=== PATIENT | male | born 1990 | race Caucasian/White ===

== ENCOUNTER 2020-03-06 12:52 | Emergency (ER) | payer SELFPAY ==
[2020-03-06 13:06] VITALS: BP 138/94; PULSE 95; RESP 18; TEMP 37.1; O2SAT 98; BMI 26.1
--- NOTE | 2020-03-06 13:11 | W.ED.WOUNDLC ---
HPI - Wound/Laceration General: Chief Complaint: Wound/Laceration Stated Complaint: FINGER LAC Time Seen by Provider: 03/06/20 12:58 Source: patient Mode of arrival: ambulatory Limitations: no limitations History of Present Illness: HPI narrative: Patient is a 29-year-old male who presents to ED today after he was sent from urgent care for trauma to his left fourth finger. Patient tells me he was at work when he accidentally chopped a portion of his finger off with a knife. He states this is not a workers comp claim Onset (ago): hour(s) Extremity Location: Left: hand Place: work Patient tetanus UTD: No Context: accidental Associated symptoms: Reports no associated symptoms Review of Systems Musc: Reports: extremity pain (L 4th finger injury) PFS ED PFSH: Social History Smoking and tobacco status: current every day smoker Physical Exam Const: COMMON NORMALS: no acute distress, average body habitus, patient oriented x3, no limitations, healthy appearing, alert and well nourished Extremity: GENERAL: Yes normal exam except as noted OTHER: pt has amputation of a small portion of the fatty tip of his L 4th finger; there is no nail trauma; no exposed bone Neuro: COMMON NORMALS: patient oriented x3 SENSORIUM/ORIENTATION: Yes alert Skin: OTHER: see extremity assessment Course Vital Signs: Vital signs: Vital Signs Temperature 98.7 F 03/06/20 13:06 Pulse Rate 95 03/06/20 13:06 Respiratory Rate 18 03/06/20 13:41 Blood Pressure 138/94 03/06/20 13:06 Pulse Oximetry 98 03/06/20 13:06 MDM - Wound/Laceration MDM Narrative: Medical decision making narrative: at this point there is nothing to do for patient; there is no bony involvement; this will heal by secondary intent; tetanus Imaging Data^: XR L finger: My impression: there is no fracture present; pt has several mm of skin present from distal phalanx tip; wound will need to heal by secondary intent; tetanus updated; will place on abx; instructions for wet to dry dressings; return to ED precautions given Discharge Plan Discharge Patient Disposition: Home Clinical Impression: Traumatic amputation of tip of left middle finger Qualifiers: Encounter type: initial encounter Qualified Code(s): S68.113A - Complete traumatic metacarpophalangeal amputation of left middle finger, initial encounter Condition: Stable Prescriptions: New Keflex 500 mg capsule 500 mg PO Q6H 7 Days Qty: 28 RF: 0 tramadol 50 mg tablet 50 mg PO Q6H PRN (Reason: pain) Qty: 14 RF: 0 Discharge Orders: Discharge Order (Routine); Ordered 03/06/20 Ordered By: Danae Stallings Activity Restrictions/Additional Instructions: Keep wound clean with warm soap and water several times daily. Do wet to dry dressings as instructed. Begin antibiotics immediately. Monitor for infection such as redness, swelling, discharge. You may follow-up with primary care in one week for reevaluation. Coding Level of Care Code ED [employer] Supervisor for Olvin Cheema Exam Expanded Problem Focused
--- NOTE | 2020-03-06 13:22 | XRR_ITS ---
PROCEDURE INFORMATION: Exam: XR Left Finger(s) Exam date and time: 03/06/2020 1:44 PM Age: 29 years old Clinical indication: Injury or trauma; Injury history: Laceration; Work related; Initial encounter; Left; Ring finger; Injury date: Today; Injury details: Cut tip of 4th digit with knife; Additional info: Trauma; 4th TECHNIQUE: Imaging protocol: XR Left fingers. Views: Minimum 2 views. COMPARISON: No relevant prior studies available. FINDINGS: Bones/joints: Normal finger. No fracture or foreign body. Soft tissues: Possible soft tissue laceration about the distal phalanx XR/XR finger LT min 2V [id number] IMPRESSION: No fracture or foreign body.
[2020-03-06 13:41] VITALS: RESP 18
[2020-03-06] MEDS: tetanus-diphtheria tox (adult) 0.5 mL SDV IM (14:01)
== END 2020-03-06 14:24 | disposition home or self-care (01) ==
LOC: ER 04-07 14:43
PROVIDERS: Emergency Provider Physician Assistant
DX: S68.113A Complete traumatic metacarpophalangeal amputation of left middle finger, initial encounter (principal); F17.210 Nicotine dependence, cigarettes, uncomplicated; W26.0XXA Contact with knife, initial encounter; Y99.0 Civilian activity done for income or pay; Z23 Encounter for immunization
CPT/HCPCS: 12345; 73140; 90471; 90714; 99281